=== PATIENT | male | born 1965 | race Caucasian/White ===

== ENCOUNTER 2023-05-30 11:37 | Outpatient (OUT) | payer SELFPAY ==
[2023-05-30 13:05] LABS: Prostate Specific Antigen Dx 0.47 ng/mL (<=4.00)
== END 2023-05-30 11:38 | disposition home or self-care (01) ==
LOC: LAB 11:41
PROVIDERS: PCP Nurse Practitioner Family; Visit Provider Urology
DX: N40.1 Benign prostatic hyperplasia with lower urinary tract symptoms (principal)
CPT/HCPCS: 36415; 84153